=== PATIENT | female | born 1955 | race Caucasian/White ===

== ENCOUNTER 2022-03-21 20:42 | Emergency (ER) | payer MEDICARE, OTHER, SELFPAY ==
--- NOTE | ~2022-03-21 | CT_ITS ---
EXAMINATION: CT thoracic lumbar wo con DATE: 03/22/2022 00:25 INDICATION: Back pain after fall TECHNIQUE: Computed tomography (CT) of the thoracic and lumbar spine was performed without intravenou s contrast. The dose-length product (DLP) was 1045.15 mGy-cm. Iterative reconstruction was used. COMPARISON: None FINDINGS: Thoracic spine: Bone alignment is normal. There is mild anterior wedging of multiple mid and lower th oracic vertebral bodies which is likely physiologic. No acute fracture is identified. There is mild l oss of intervertebral disc space height at multiple levels in the thoracic spine. There are subpleura l reticular and groundglass opacities in the visualized portions of the thorax have pattern consisten t with nonspecific interstitial pneumonia (NSIP). Mild mediastinal lymphadenopathy is noted which is likely reactive. There is a large hiatal hernia containing the entire stomach with organoaxial volvul us. Lumbar spine: Bone alignment is normal. There is no fracture. There is moderate loss of intervertebra l disc space height at L4-5. There is moderate facet osteoarthritis of the lower lumbar spine. Incide ntal note is made of a 4.6 cm fusiform infrarenal abdominal aortic aneurysm. IMPRESSION: 1. Chronic appearing mild anterior wedging of the thoracic spine without acute fracture identified. 2. Moderate lumbar spondylosis at L4-5. 3. 4.6 cm fusiform infrarenal abdominal aortic aneurysm. 4. Large hiatal hernia containing the entire stomach with organoaxial volvulus. 5. Chronic interstitial lung disease in a pattern of nonspecific interstitial pneumonia (NSIP). Reviewed, dictated and finalized at location B. IMPRESSION: 1. Chronic appearing mild anterior wedging of the thoracic spine without acute fracture identified. 2. Moderate lumbar spondylosis at L4-5. 3. 4.6 cm fusiform infrarenal abdominal aortic aneurysm. 4. Large hiatal hernia containing the entire stomach with organoaxial volvulus. 5. Chronic interstitial lung disease in a pattern of nonspecific interstitial p neumonia (NSIP).
--- NOTE | ~2022-03-21 | XR_ITS ---
EXAMINATION: XR wrist RT min 3V DATE: 03/22/2022 00:34 INDICATION: Right wrist pain. TECHNIQUE: 3 views of right wrist were obtained. COMPARISON: None. FINDINGS: There is a comminuted fracture of distal radius with involvement of the distal articular raymond rface. The main distal fracture fragment demonstrates impaction. Internal fixation is seen with volar plate and screws. There is an avulsion fracture of the ulnar styloid. There is mild osteoarthritis o f triscaphe joint and severe osteoarthritis of first carpometacarpal joint. Cast material is noted. IMPRESSION: 1. Fracture of distal radius with internal fixation. 2. Avulsion fracture of ulnar styloid. 3. Polyarticular osteoarthritis. Reviewed, dictated and finalized at location A.
--- NOTE | ~2022-03-21 | CT_ITS ---
EXAMINATION: CT cervical spine wo con DATE: 03/22/2022 00:25 INDICATION: Neck pain TECHNIQUE: Computed tomography (CT) of the cervical spine was performed without intravenous contrast. The dose-length product (DLP) was 242.65 mGy-cm. Automated exposure control and iterative reconstruc tion technique were employed. COMPARISON: None FINDINGS: There is no fracture, dislocation, or subluxation. Small degenerative osteophytes project f rom the anterior endplates of multiple vertebral bodies. The vertebral body heights are normal. The o dontoid is intact. There is mild loss of intervertebral disc space height at C5-6 and C6-7. There is mild facet and uncovertebral joint osteoarthritis. The prevertebral soft tissues are normal. There is fibrous union of the posterior C1 arch. There is a 1.7 cm nodule of the right thyroid. There is mild emphysema of the visualized lung apices. IMPRESSION: 1. Mild cervical spondylosis without acute findings. Reviewed, dictated and finalized at location B.
[2022-03-21 20:59] VITALS: BP 127/82; PULSE 96; RESP 18; TEMP 36.6; O2SAT 98
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
[2022-03-22] MEDS: oxyCODONE/ACETAMINOPHEN (*CRX) 5-325 MG TABLET 1 TABLET PO (00:42)
[2022-03-22 00:59] LABS: Basophils Percent Auto 0.4 % (0.2-1.2); Eosinophils Absolute Auto 0.4 K/mm3 (0-0.3); Eosinophils Percent Auto 3.4 % (0-4.4); Immature Granulocyte Absolute 0.02 K/mm3 (0.00-0.031); Immature Granulocyte Percent A 0.2 % (0-0.5); Lymphocytes Absolute Auto 3.04 K/mm3 (0.9-3.2); Lymphocytes Percent Auto 29.4 % (18.3-44.2); Mean Corpuscular HGB Conc 31.4 g/dl (32-36); Mean Corpuscular Hemoglobin 26.8 pg (26-34); Mean Corpuscular Volume 85.2 fl (80-100); Mean Platelet Volume 10.7 fl (7.4-10.4); Monocytes Absolute Auto 0.9 K/mm3 (0.1-0.6); Neutrophils Percent Auto 57.6 % (45.5-73.1); Platelet Count Result 352 k/mm3 (150-375); Red Blood Count 4.11 M/mm3 (4.2-5.4); Red Cell Distribution Width 16.2 % (11.5-14.5); White Blood Count 10.3 K/mm3 (4.5-10.0)
[2022-03-22 01:13] LABS: Anion Gap 8 mmol/L (8-16); Blood Urea Nitrogen 11 mg/dL (7-17); Calcium 9.5 mg/dL (8.4-10.2); Carbon Dioxide 28 mmol/L (22-30); Chloride 100 mmol/L (98-107); Estimated CRCL calculation 64 ml/min; Estimated Glomerular Filt Rate > 60; Glucose 102 mg/dL (65-110); Sodium 136 mmol/L (137-145)
[2022-03-22 03:18] VITALS: BP 134/78; PULSE 89; RESP 14; O2SAT 99
== END 2022-03-22 03:20 | disposition home or self-care (01) ==
PROVIDERS: Emergency Provider Emergency Medicine
DX: M54.2 Cervicalgia (principal); M54.50 Low back pain, unspecified; M25.531 Pain in right wrist; S52.591D Other fractures of lower end of right radius, subsequent encounter for closed fracture with routine healing; S52.611D Displaced fracture of right ulna styloid process, subsequent encounter for closed fracture with routine healing; F17.200 Nicotine dependence, unspecified, uncomplicated; I71.4 Abdominal aortic aneurysm, without rupture; M51.34 Other intervertebral disc degeneration, thoracic region; M47.816 Spondylosis without myelopathy or radiculopathy, lumbar region; M47.812 Spondylosis without myelopathy or radiculopathy, cervical region; K44.9 Diaphragmatic hernia without obstruction or gangrene; J84.9 Interstitial pulmonary disease, unspecified; M19.031 Primary osteoarthritis, right wrist; X58.XXXD Exposure to other specified factors, subsequent encounter
CPT/HCPCS: 36415; 72125; 72128; 72131; 73110; 80048; 84443; 85025; 99284; A9270